=== PATIENT | female | born 1935 | race Caucasian/White ===

== ENCOUNTER → 2017-04-09 | Outpatient (REF) | payer OTHER ==
[2017-04-09 12:06] LABS: MEAN CORPUSCULAR HEMOGLOBIN 30.6 pg (27.0-33.0); MEAN CORPUSCULAR HGB CONC 32.6 g/dl (32.0-36.5); MEAN CORPUSCULAR VOLUME 93.7 fl (80.0-96.0); RED CELL DISTRIBUTION WIDTH 14.3 % (11.5-14.5); WHITE BLOOD COUNT 6.8 K/mm3 (4.0-10.0)
[2017-04-09 12:27] LABS: FOLATE > 24.0 NG/ML; VITAMIN B12 LEVEL 159 PG/ML
[2017-04-09 12:37] LABS: ALBUMIN 3.8 GM/DL (3.2-5.2); ALBUMIN/GLOBULIN RATIO 1.23 (1.00-1.93); ALKALINE PHOSPHATASE 56 U/L (45-117); ALT/SGPT 20 U/L (12-78); ANION GAP 7 MEQ/L (8-16); AST/SGOT 15 U/L (15-37); BILIRUBIN,TOTAL 0.8 MG/DL (0.2-1.0); BLOOD UREA NITROGEN 23 MG/DL (7-18); CALCIUM LEVEL 9.3 MG/DL (8.8-10.2); CARBON DIOXIDE LEVEL 31 MEQ/L (21-32); CHLORIDE LEVEL 105 MEQ/L (98-107); CHOLESTEROL LEVEL 162 MG/DL (<200); CREATININE FOR GFR 0.64 MG/DL (0.55-1.02); GLOMERULAR FILTRATION RATE > 60.0 (>32); GLUCOSE, FASTING 112 MG/DL (83-110); POTASSIUM SERUM 4.4 MEQ/L (3.5-5.1); SODIUM LEVEL 143 MEQ/L (136-145); TOTAL PROTEIN 6.9 GM/DL (6.4-8.2); TRIGLYCERIDES LEVEL 128 MG/DL (<150)
== END ==
LOC: M SFHCPLAZ 09:01
PROVIDERS: ATTEND Nurse Practitioner Family
DX: E53.8 Deficiency of other specified B group vitamins (principal); I10 Essential (primary) hypertension; E78.2 Mixed hyperlipidemia; E55.9 Vitamin D deficiency, unspecified

== ENCOUNTER → 2017-06-10 | Outpatient (REF) | payer OTHER ==
[2017-06-10 11:37] LABS: MEAN CORPUSCULAR HEMOGLOBIN 30.3 pg (27.0-33.0); MEAN CORPUSCULAR HGB CONC 33.4 g/dl (32.0-36.5); MEAN CORPUSCULAR VOLUME 90.8 fl (80.0-96.0)
[2017-06-10 11:53] LABS: VITAMIN B12 LEVEL 572 PG/ML
[2017-06-10 11:54] LABS: FOLATE > 24.0 NG/ML
[2017-06-15 14:10] LABS: ANTI-PARIETAL CELL ANTIBODY 39.8 Units (0.0-20.0)
== END ==
LOC: M SFHCPLAZ 08:38
PROVIDERS: ATTEND Nurse Practitioner Family
DX: E53.8 Deficiency of other specified B group vitamins (principal)

== ENCOUNTER → 2017-10-20 | Outpatient (REF) | payer OTHER ==
[2017-10-20 10:50] LABS: MEAN CORPUSCULAR HEMOGLOBIN 29.6 pg (27.0-33.0); MEAN CORPUSCULAR HGB CONC 32.6 g/dl (32.0-36.5); MEAN CORPUSCULAR VOLUME 90.8 fl (80.0-96.0); PLATELET COUNT, AUTOMATED 212 10^3/uL (150-450); RED CELL DISTRIBUTION WIDTH 14.4 % (11.5-14.5); WHITE BLOOD COUNT 5.7 10^3/uL (4.0-10.0)
[2017-10-20 11:24] LABS: ALBUMIN 3.6 GM/DL (3.2-5.2); ALBUMIN/GLOBULIN RATIO 1.09 (1.00-1.93); ALKALINE PHOSPHATASE 48 U/L (45-117); ALT/SGPT 23 U/L (12-78); ANION GAP 6 MEQ/L (8-16); AST/SGOT 16 U/L (7-37); BILIRUBIN,TOTAL 0.6 MG/DL (0.2-1.0); BLOOD UREA NITROGEN 28 MG/DL (7-18); CALCIUM LEVEL 9.4 MG/DL (8.8-10.2); CARBON DIOXIDE LEVEL 30 MEQ/L (21-32); CHLORIDE LEVEL 106 MEQ/L (98-107); CREATININE FOR GFR 0.55 MG/DL (0.55-1.02); FOLATE 21.2 NG/ML; GLOMERULAR FILTRATION RATE > 60.0 (>32); GLUCOSE, FASTING 95 MG/DL (83-110); POTASSIUM SERUM 4.3 MEQ/L (3.5-5.1); SODIUM LEVEL 142 MEQ/L (136-145); TOTAL PROTEIN 6.9 GM/DL (6.4-8.2); VITAMIN B12 LEVEL 615 PG/ML
== END ==
LOC: M SFHCPLAZ 08:52
PROVIDERS: ATTEND Nurse Practitioner Family
DX: E53.8 Deficiency of other specified B group vitamins (principal); I10 Essential (primary) hypertension; E55.9 Vitamin D deficiency, unspecified

== ENCOUNTER → 2017-10-30 | Outpatient (CLI) | payer OTHER ==
--- NOTE | 2017-10-30 08:55 | REPMRS ---
Patient History The patient states she had a clinical breast exam in 09/2017. 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 No known family history of cancer. Malignant lumpectomy of the left breast, 2005. Radiation therapy of the left breast, 2004. Took tamoxifen for 5 years. Digital Woman Screen Mammo: October 30, 2017 - Exam #: [id number] Bilateral CC and MLO view(s) were taken. Technologist: Nataliya Aguirre, Technologist Prior study comparison: October 27, 2016, digital woman screen mammo performed at [facility]. October 24, 2015, bilateral digital mammo screening bilat, performed at [facility]. October 23, 2014, bilateral digital mammo screening bilat, performed at [facility]. FINDINGS: There are scattered fibroglandular densities. There are stable post treatment changes in the left breast.There has been no change in the appearance of the mammogram from the prior studies. There is a mild amount of scattered fibroglandular density which is fairly symmetric. There is no interval development of dominant mass, architectural distortion, or clustered microcalcification suggestive of malignancy. ASSESSMENT: BI-RADS/ACR category 1 mammogram. Negative. Recommendation Routine screening mammogram in 1 year (for women over age 40). This mammogram was interpreted with the aid of an FDA-approved computer-aided dectection system. Electronically Signed By: Maurisio Sarah MD 10/30/17 [id number]
== END ==
LOC: M WHC 07:45
PROVIDERS: ATTEND Nurse Practitioner Family
DX: Z12.31 Encounter for screening mammogram for malignant neoplasm of breast (principal)

== ENCOUNTER → 2018-03-30 | Outpatient (REF) | payer OTHER ==
[2018-03-30 10:50] LABS: HEMATOCRIT 46.5 % (36.0-47.0); HEMOGLOBIN 15.2 g/dl (12.0-15.5); MEAN CORPUSCULAR HEMOGLOBIN 30.1 pg (27.0-33.0); MEAN CORPUSCULAR HGB CONC 32.7 g/dl (32.0-36.5); MEAN CORPUSCULAR VOLUME 92.1 fl (80.0-96.0); PLATELET COUNT, AUTOMATED 217 10^3/uL (150-450); RED BLOOD COUNT 5.05 10^6/uL (4.00-5.40); RED CELL DISTRIBUTION WIDTH 14.2 % (11.5-14.5); WHITE BLOOD COUNT 7.5 10^3/uL (4.0-10.0)
[2018-03-30 11:40] LABS: ALBUMIN 3.7 GM/DL (3.2-5.2); ALBUMIN/GLOBULIN RATIO 1.09 (1.00-1.93); ALKALINE PHOSPHATASE 48 U/L (45-117); ALT/SGPT 23 U/L (12-78); ANION GAP 4 MEQ/L (8-16); AST/SGOT 21 U/L (7-37); BILIRUBIN,TOTAL 0.7 MG/DL (0.2-1.0); BLOOD UREA NITROGEN 25 MG/DL (7-18); CALCIUM LEVEL 9.1 MG/DL (8.8-10.2); CARBON DIOXIDE LEVEL 30 MEQ/L (21-32); CHLORIDE LEVEL 110 MEQ/L (98-107); CHOLESTEROL LEVEL 143 MG/DL (<200); CHOLESTEROL RISK RATIO 2.014 (<5); CREATININE FOR GFR 0.55 MG/DL (0.55-1.30); GLOMERULAR FILTRATION RATE > 60.0 (>32); GLUCOSE, FASTING 94 MG/DL (70-100); HDL CHOLESTEROL 71 MG/DL (>40); LDL CHOLESTEROL 44.4 MG/DL (<100); NON-HDL-C 72 MG/DL; POTASSIUM SERUM 4.1 MEQ/L (3.5-5.1); SODIUM LEVEL 144 MEQ/L (136-145); TOTAL PROTEIN 7.1 GM/DL (6.4-8.2); TRIGLYCERIDES LEVEL 138 MG/DL (<150)
[2018-03-30 11:46] LABS: TOTAL 25(OH) VITAMIN D 42.9 NG/ML (30.0-100.0)
[2018-03-30 11:47] LABS: FOLATE 22.5 NG/ML; VITAMIN B12 LEVEL 1015 PG/ML
== END ==
LOC: M SFHCPLAZ 08:54
DX: E53.8 Deficiency of other specified B group vitamins (principal); I10 Essential (primary) hypertension; E78.2 Mixed hyperlipidemia; E55.9 Vitamin D deficiency, unspecified
CPT/HCPCS: 82746

== ENCOUNTER → 2018-04-06 | Outpatient (CLI) | payer OTHER | LOC: M SMT 15:19 | DX: K44.9 Diaphragmatic hernia without obstruction or gangrene (principal); R05 Cough | CPT/HCPCS: 71046; G0463 ==

== ENCOUNTER → 2018-08-30 | Outpatient (REF) | payer OTHER ==
[2018-08-30 12:54] LABS: ALBUMIN 3.7 GM/DL (3.2-5.2); ALBUMIN/GLOBULIN RATIO 1.16 (1.00-1.93); ALKALINE PHOSPHATASE 54 U/L (45-117); ALT/SGPT 24 U/L (12-78); ANION GAP 8 MEQ/L (8-16); AST/SGOT 21 U/L (7-37); BILIRUBIN,TOTAL 0.6 MG/DL (0.2-1.0); BLOOD UREA NITROGEN 21 MG/DL (7-18); CALCIUM LEVEL 9.6 MG/DL (8.8-10.2); CARBON DIOXIDE LEVEL 27 MEQ/L (21-32); CHLORIDE LEVEL 107 MEQ/L (98-107); CREATININE FOR GFR 0.61 MG/DL (0.55-1.30); GLOMERULAR FILTRATION RATE > 60.0 (>32); GLUCOSE, FASTING 102 MG/DL (70-100); POTASSIUM SERUM 4.5 MEQ/L (3.5-5.1); SODIUM LEVEL 142 MEQ/L (136-145); TOTAL PROTEIN 6.9 GM/DL (6.4-8.2)
[2018-08-30 13:28] LABS: TOTAL 25(OH) VITAMIN D 41.4 NG/ML (30.0-100.0)
[2018-08-30 13:29] LABS: FOLATE 16.8 NG/ML
== END ==
LOC: M SFHCPLAZ 08:55
DX: I10 Essential (primary) hypertension (principal); M81.0 Age-related osteoporosis without current pathological fracture; E53.8 Deficiency of other specified B group vitamins
CPT/HCPCS: 82746

== ENCOUNTER 2018-10-05 07:56 | Emergency (ER) | payer OTHER ==
[2018-10-05 08:46] LABS: BEDSIDE GLUCOSE 102 MG/DL (83-110)
[2018-10-05] MEDS: MECLIZINE 25 MG TABLET PO (08:48)
[2018-10-05 09:03] LABS: BASO # 0.1 10^3/uL (0.0-0.2); BASO % 1.1 % (0.0-1.0); EOS # 0.2 10^3/uL (0.0-0.50); EOS % 2.5 % (0.0-3.0); HEMATOCRIT 43.3 % (36.0-47.0); HEMOGLOBIN 14.5 g/dl (12.0-15.5); IMMATURE GRANULOCYTE % 0.6 % (0-3.0); LYMPH # 0.7 10^3/uL (1.5-4.5); LYMPH % 9.7 % (24.0-44.0); MEAN CORPUSCULAR HGB CONC 33.5 g/dl (32.0-36.5); MEAN CORPUSCULAR VOLUME 89.6 fl (80.0-96.0); MONO # 0.6 10^3/uL (0.0-0.8); MONO % 8.5 % (0.0-5.0); NEUTROPHILS # 5.6 10^3/uL (1.8-7.7); NEUTROPHILS % 77.6 % (36.0-66.0); PLATELET COUNT, AUTOMATED 191 10^3/uL (150-450); RED BLOOD COUNT 4.83 10^6/uL (4.00-5.40); RED CELL DISTRIBUTION WIDTH 14.6 % (11.5-14.5); WHITE BLOOD COUNT 7.2 10^3/uL (4.0-10.0)
[2018-10-05 09:42] LABS: ANION GAP 8 MEQ/L (8-16); BLOOD UREA NITROGEN 27 MG/DL (7-18); CALCIUM LEVEL 9.3 MG/DL (8.8-10.2); CARBON DIOXIDE LEVEL 27 MEQ/L (21-32); CHLORIDE LEVEL 106 MEQ/L (98-107); CPK CREATINE PHOSPHOKINASE 47 U/L (26-192); CREATININE FOR GFR 0.64 MG/DL (0.55-1.30); FREE T4 1.06 NG/DL (0.76-1.46); GLOMERULAR FILTRATION RATE > 60.0 (>32); GLUCOSE, FASTING 127 MG/DL (70-100); MAGNESIUM LEVEL 2.2 MG/DL (1.8-2.4); POTASSIUM SERUM 4.2 MEQ/L (3.5-5.1); SODIUM LEVEL 141 MEQ/L (136-145); TROPONIN I < 0.02 NG/ML (< 0.10)
[2018-10-05 09:55] LABS: INR 0.97
[2018-10-05 09:56] LABS: PARTIAL THROMBOPLASTIN TIME 26.8 SECONDS (25.4-37.6)
[2018-10-05] MEDS: hydroCHLOROthiazide 25 MG TAB PO (09:58)
[2018-10-05] MEDS: ATENOLOL 25 MG TAB PO (09:58)
[2018-10-05] MEDS: VALSARTAN 80 MG TAB (DIOVAN) PO (09:58)
== END 2018-10-05 13:37 | disposition home or self-care (01) ==
LOC: M ED 07:56
DX: R42 Dizziness and giddiness (principal); I11.9 Hypertensive heart disease without heart failure; I44.4 Left anterior fascicular block; I25.10 Atherosclerotic heart disease of native coronary artery without angina pectoris; E78.5 Hyperlipidemia, unspecified; K21.9 Gastro-esophageal reflux disease without esophagitis; K44.9 Diaphragmatic hernia without obstruction or gangrene; E55.9 Vitamin D deficiency, unspecified; J30.9 Allergic rhinitis, unspecified; R01.1 Cardiac murmur, unspecified; R60.0 Localized edema; Z85.3 Personal history of malignant neoplasm of breast; Z95.5 Presence of coronary angioplasty implant and graft; I67.82 Cerebral ischemia; Z88.8 Allergy status to other drugs, medicaments and biological substances; Z79.899 Other long term (current) drug therapy; Z79.82 Long term (current) use of aspirin
CPT/HCPCS: 71046

== ENCOUNTER → 2019-04-11 | Outpatient (REF) | payer MEDICARE ==
[~2019-04-11] MED LIST: ACET500T15 PO; ASPI-222 PO; ATEN25TA PO; AZEL0.055 NARES; CALC1TAB63 PO; CRES10TA PO; DIOV160T6 PO; GABA-843 PO; HYDR25TAB PO; MECL-86 PO; MULTCAP PO; NITR4TASL SL; OMEP10CASR PO; SALI0.652 NARES; TESS100C PO; VITA10002 PO; VITA1TAB9 PO
[2019-04-11 12:16] LABS: ALBUMIN 3.7 GM/DL (3.2-5.2); ALT/SGPT 26 U/L (12-78); BILIRUBIN,TOTAL 0.9 MG/DL (0.2-1.0); BLOOD UREA NITROGEN 26 MG/DL (7-18); CALCIUM LEVEL 9.4 MG/DL (8.8-10.2); CARBON DIOXIDE LEVEL 30 MEQ/L (21-32); CHLORIDE LEVEL 106 MEQ/L (98-107); CHOLESTEROL LEVEL 148 MG/DL (<200); CHOLESTEROL RISK RATIO 2.027 (<5); CREATININE FOR GFR 0.64 MG/DL (0.55-1.30); GLOMERULAR FILTRATION RATE > 60.0 (>32); GLUCOSE, FASTING 105 MG/DL (70-100); HDL CHOLESTEROL 73 MG/DL (>40); LDL CHOLESTEROL 35 MG/DL (<100); NON-HDL-C 75 MG/DL; POTASSIUM SERUM 4.3 MEQ/L (3.5-5.1); SODIUM LEVEL 143 MEQ/L (136-145); TOTAL PROTEIN 7.3 GM/DL (6.4-8.2); TRIGLYCERIDES LEVEL 200 MG/DL (<150)
== END ==
LOC: M SFHCPLAZ 09:01
PROVIDERS: ATTEND Nurse Practitioner Family
DX: I10 Essential (primary) hypertension (principal); E78.2 Mixed hyperlipidemia; E55.9 Vitamin D deficiency, unspecified; Z79.899 Other long term (current) drug therapy

== ENCOUNTER → 2019-09-08 | Outpatient (REF) | payer MEDICARE ==
[~2019-09-08] MED LIST changes: -ASPI-222 PO; +ASPI-527 PO; +CYAN100049 PO; -VITA10002 PO
[2019-09-08 12:02] LABS: ALBUMIN 3.7 GM/DL (3.2-5.2); ALT/SGPT 26 U/L (12-78); BILIRUBIN,TOTAL 0.8 MG/DL (0.2-1.0); BLOOD UREA NITROGEN 23 MG/DL (7-18); CALCIUM LEVEL 9.8 MG/DL (8.8-10.2); CARBON DIOXIDE LEVEL 32 MEQ/L (21-32); CHLORIDE LEVEL 106 MEQ/L (98-107); CHOLESTEROL LEVEL 164 MG/DL (<200); CHOLESTEROL RISK RATIO 2.309 (<5); CREATININE FOR GFR 0.78 MG/DL (0.55-1.30); GLOMERULAR FILTRATION RATE > 60.0 (>32); GLUCOSE, FASTING 99 MG/DL (70-100); HDL CHOLESTEROL 71 MG/DL (>40); LDL CHOLESTEROL 58 MG/DL (<100); NON-HDL-C 93 MG/DL; POTASSIUM SERUM 4.6 MEQ/L (3.5-5.1); SODIUM LEVEL 141 MEQ/L (136-145); TRIGLYCERIDES LEVEL 174 MG/DL (<150)
[2019-09-08 12:06] LABS: TOTAL 25(OH) VITAMIN D 50.9 NG/ML (30.0-100.0)
[2019-09-08 12:07] LABS: VITAMIN B12 LEVEL > 2000 PG/ML
== END ==
LOC: M SFHCPLAZ 08:54
PROVIDERS: ATTEND Nurse Practitioner Family
DX: E78.2 Mixed hyperlipidemia (principal); E55.9 Vitamin D deficiency, unspecified; E53.8 Deficiency of other specified B group vitamins; Z79.899 Other long term (current) drug therapy; Z79.82 Long term (current) use of aspirin

== ENCOUNTER → 2020-05-21 | Outpatient (CLI) | payer MEDICARE ==
[2020-05-21 13:01] LABS: BLOOD UREA NITROGEN 22 MG/DL (7-18); CALCIUM LEVEL 9.8 MG/DL (8.8-10.2); CARBON DIOXIDE LEVEL 28 MEQ/L (21-32); CHLORIDE LEVEL 107 MEQ/L (98-107); CREATININE FOR GFR 0.66 MG/DL (0.55-1.30); GLOMERULAR FILTRATION RATE > 60.0 (>32); GLUCOSE, FASTING 107 MG/DL (70-100); POTASSIUM SERUM 5.2 MEQ/L (3.5-5.1); SODIUM LEVEL 139 MEQ/L (136-145); URIC ACID 3.9 MG/DL (2.6-6.0)
== END ==
LOC: M PLALAB 09:28
PROVIDERS: ATTEND Nurse Practitioner Family
DX: I10 Essential (primary) hypertension (principal); M15.9 Polyosteoarthritis, unspecified

== ENCOUNTER → 2020-07-24 | Outpatient (CLI) | payer MEDICARE ==
[2020-07-24 19:18] LABS: HEMATOCRIT 46.3 % (36.0-47.0); HEMOGLOBIN 15.2 g/dl (12.0-15.5); MEAN CORPUSCULAR HEMOGLOBIN 30.8 pg (27.0-33.0); MEAN CORPUSCULAR HGB CONC 32.8 g/dl (32.0-36.5); MEAN CORPUSCULAR VOLUME 93.9 fl (80.0-96.0); PLATELET COUNT, AUTOMATED 201 10^3/uL (150-450); RED BLOOD COUNT 4.93 10^6/uL (4.00-5.40); WHITE BLOOD COUNT 6.9 10^3/uL (4.0-10.0)
[2020-07-24 19:51] LABS: BLOOD UREA NITROGEN 29 MG/DL (7-18); CARBON DIOXIDE LEVEL 30 MEQ/L (21-32); CHLORIDE LEVEL 106 MEQ/L (98-107); CREATININE FOR GFR 0.73 MG/DL (0.55-1.30); GLOMERULAR FILTRATION RATE > 60.0 (>32); GLUCOSE, FASTING 106 MG/DL (70-100); MAGNESIUM LEVEL 2.3 MG/DL (1.8-2.4); NT-PRO BNP 444 PG/ML (<450); POTASSIUM SERUM 5.5 MEQ/L (3.5-5.1); SODIUM LEVEL 139 MEQ/L (136-145)
== END ==
LOC: M PLALAB 14:44
PROVIDERS: ATTEND Physician Assistant
DX: I50.9 Heart failure, unspecified (principal)

== ENCOUNTER → 2020-08-21 | Outpatient (CLI) | payer MEDICARE ==
[2020-08-21 12:15] LABS: BLOOD UREA NITROGEN 32 MG/DL (7-18); CARBON DIOXIDE LEVEL 31 MEQ/L (21-32); CHLORIDE LEVEL 105 MEQ/L (98-107); GLOMERULAR FILTRATION RATE > 60.0 (>32); GLUCOSE, FASTING 105 MG/DL (70-100); MAGNESIUM LEVEL 2.3 MG/DL (1.8-2.4); NT-PRO BNP 213 PG/ML (<450); SODIUM LEVEL 139 MEQ/L (136-145)
== END ==
LOC: M PLALAB 08:23
PROVIDERS: ATTEND Physician Assistant
DX: I50.9 Heart failure, unspecified (principal)

== ENCOUNTER → 2020-09-03 | Outpatient (CLI) | payer MEDICARE ==
[2020-09-03 12:41] LABS: BLOOD UREA NITROGEN 37 MG/DL (7-18); CALCIUM LEVEL 9.7 MG/DL (8.8-10.2); CARBON DIOXIDE LEVEL 31 MEQ/L (21-32); CHLORIDE LEVEL 106 MEQ/L (98-107); CREATININE FOR GFR 0.77 MG/DL (0.55-1.30); GLOMERULAR FILTRATION RATE > 60.0 (>32); GLUCOSE, FASTING 102 MG/DL (70-100); MAGNESIUM LEVEL 2.2 MG/DL (1.8-2.4); NT-PRO BNP 168 PG/ML (<450); POTASSIUM SERUM 4.9 MEQ/L (3.5-5.1); SODIUM LEVEL 141 MEQ/L (136-145)
== END ==
LOC: M PLALAB 08:11
PROVIDERS: ATTEND Physician Assistant
DX: I50.9 Heart failure, unspecified (principal)

== ENCOUNTER → 2020-09-03 | Outpatient (REF) | payer MEDICARE ==
[2020-09-03 12:39] LABS: ALBUMIN 3.6 GM/DL (3.2-5.2); ALT/SGPT 22 U/L (12-78); BILIRUBIN,TOTAL 0.7 MG/DL (0.2-1.0); BLOOD UREA NITROGEN 36 MG/DL (7-18); CALCIUM LEVEL 9.9 MG/DL (8.8-10.2); CARBON DIOXIDE LEVEL 31 MEQ/L (21-32); CHLORIDE LEVEL 105 MEQ/L (98-107); CHOLESTEROL LEVEL 153 MG/DL (<200); CHOLESTEROL RISK RATIO 2.283 (<5); CREATININE FOR GFR 0.75 MG/DL (0.55-1.30); GLOMERULAR FILTRATION RATE > 60.0 (>32); GLUCOSE, FASTING 100 MG/DL (70-100); HDL CHOLESTEROL 67 MG/DL (>40); LDL CHOLESTEROL 52 MG/DL (<100); NON-HDL-C 86 MG/DL; POTASSIUM SERUM 4.9 MEQ/L (3.5-5.1); SODIUM LEVEL 140 MEQ/L (136-145); TOTAL PROTEIN 6.8 GM/DL (6.4-8.2); TRIGLYCERIDES LEVEL 169 MG/DL (<150)
[2020-09-03 12:44] LABS: TOTAL 25(OH) VITAMIN D 63.7 NG/ML (30.0-100.0)
== END ==
LOC: M PLALAB 08:11
PROVIDERS: ATTEND Nurse Practitioner Family
DX: E78.2 Mixed hyperlipidemia (principal); I11.0 Hypertensive heart disease with heart failure; E55.9 Vitamin D deficiency, unspecified; I50.9 Heart failure, unspecified

== ENCOUNTER → 2020-09-17 | Outpatient (CLI) | payer MEDICARE ==
[2020-09-17 12:08] LABS: BLOOD UREA NITROGEN 25 MG/DL (7-18); CALCIUM LEVEL 9.7 MG/DL (8.8-10.2); CARBON DIOXIDE LEVEL 32 MEQ/L (21-32); CHLORIDE LEVEL 106 MEQ/L (98-107); GLOMERULAR FILTRATION RATE > 60.0 (>32); GLUCOSE, FASTING 104 MG/DL (70-100); MAGNESIUM LEVEL 2.2 MG/DL (1.8-2.4); NT-PRO BNP 224 PG/ML (<450); POTASSIUM SERUM 4.8 MEQ/L (3.5-5.1); SODIUM LEVEL 143 MEQ/L (136-145)
== END ==
LOC: M PLALAB 08:04
PROVIDERS: ATTEND Physician Assistant
DX: I50.9 Heart failure, unspecified (principal)

== ENCOUNTER → 2020-12-17 | Outpatient (CLI) | payer MEDICARE ==
[~2020-12-17] MED LIST changes: +GABA-282 PO; -GABA-843 PO; +HYDR-3490 PO; -HYDR25TAB PO
[2020-12-17 14:15] LABS: BLOOD UREA NITROGEN 37 MG/DL (7-18); CALCIUM LEVEL 9.7 MG/DL (8.8-10.2); CARBON DIOXIDE LEVEL 31 MEQ/L (21-32); CHLORIDE LEVEL 106 MEQ/L (98-107); CREATININE FOR GFR 0.86 MG/DL (0.55-1.30); GLOMERULAR FILTRATION RATE > 60.0 (>32); GLUCOSE, FASTING 101 MG/DL (70-100); MAGNESIUM LEVEL 2.5 MG/DL (1.8-2.4); POTASSIUM SERUM 4.6 MEQ/L (3.5-5.1); SODIUM LEVEL 141 MEQ/L (136-145)
== END ==
LOC: M PLALAB 10:35
PROVIDERS: ATTEND Physician Assistant
DX: I50.32 Chronic diastolic (congestive) heart failure (principal); E83.42 Hypomagnesemia

== ENCOUNTER → 2021-03-22 | Outpatient (REF) | payer MEDICARE ==
[2021-03-22 10:39] LABS: BLOOD UREA NITROGEN 23 MG/DL (7-18); CALCIUM LEVEL 9.7 MG/DL (8.8-10.2); CARBON DIOXIDE LEVEL 29 MEQ/L (21-32); CHLORIDE LEVEL 105 MEQ/L (98-107); CREATININE FOR GFR 0.61 MG/DL (0.55-1.30); GLOMERULAR FILTRATION RATE > 60.0 (>32); GLUCOSE, FASTING 110 MG/DL (70-100); MAGNESIUM LEVEL 2.1 MG/DL (1.8-2.4); POTASSIUM SERUM 4.3 MEQ/L (3.5-5.1); SODIUM LEVEL 141 MEQ/L (136-145)
== END ==
LOC: M PLALAB 09:50
PROVIDERS: ATTEND Physician Assistant
DX: I50.32 Chronic diastolic (congestive) heart failure (principal); E83.42 Hypomagnesemia

== ENCOUNTER → 2021-06-19 | Outpatient (CLI) | payer MEDICARE ==
[2021-06-19 14:33] LABS: BLOOD UREA NITROGEN 24 MG/DL (7-18); CARBON DIOXIDE LEVEL 32 MEQ/L (21-32); CHLORIDE LEVEL 108 MEQ/L (98-107); GLOMERULAR FILTRATION RATE > 60.0 (>32); GLUCOSE, FASTING 106 MG/DL (70-100); MAGNESIUM LEVEL 2.5 MG/DL (1.8-2.4); NT-PRO BNP 202 PG/ML (<450); POTASSIUM SERUM 5.1 MEQ/L (3.5-5.1); SODIUM LEVEL 143 MEQ/L (136-145)
== END ==
LOC: M PLALAB 09:53
PROVIDERS: ATTEND Physician Assistant
DX: I50.9 Heart failure, unspecified (principal)

== ENCOUNTER → 2021-10-08 | Outpatient (CLI) | payer MEDICARE ==
[2021-10-08 14:19] LABS: BLOOD UREA NITROGEN 33 MG/DL (7-18); CALCIUM LEVEL 10.4 MG/DL (8.8-10.2); CARBON DIOXIDE LEVEL 33 MEQ/L (21-32); CHLORIDE LEVEL 106 MEQ/L (98-107); GLOMERULAR FILTRATION RATE > 60.0 (>32); GLUCOSE, FASTING 93 MG/DL (70-100); MAGNESIUM LEVEL 2.7 MG/DL (1.8-2.4); POTASSIUM SERUM 5.2 MEQ/L (3.5-5.1); SODIUM LEVEL 142 MEQ/L (136-145)
== END ==
LOC: M PLALAB 09:19
PROVIDERS: ATTEND Physician Assistant
DX: I50.32 Chronic diastolic (congestive) heart failure (principal); E83.42 Hypomagnesemia

== ENCOUNTER → 2022-01-21 | Outpatient (CLI) | payer MEDICARE ==
[2022-01-21 14:16] LABS: BLOOD UREA NITROGEN 33 MG/DL (7-18); CALCIUM LEVEL 9.7 MG/DL (8.8-10.2); CARBON DIOXIDE LEVEL 22 MEQ/L (21-32); CHLORIDE LEVEL 109 MEQ/L (98-107); CREATININE FOR GFR 0.69 MG/DL (0.55-1.30); GLOMERULAR FILTRATION RATE > 60.0 (>32); GLUCOSE, FASTING 91 MG/DL (70-100); POTASSIUM SERUM 5.5 MEQ/L (3.5-5.1); SODIUM LEVEL 143 MEQ/L (136-145)
== END ==
LOC: M PLALAB 09:18
PROVIDERS: ATTEND Physician Assistant
DX: I50.32 Chronic diastolic (congestive) heart failure (principal)

== ENCOUNTER → 2022-02-17 | Outpatient (CLI) | payer MEDICARE ==
[2022-02-17 14:11] LABS: BLOOD UREA NITROGEN 28 MG/DL (7-18); CALCIUM LEVEL 9.6 MG/DL (8.8-10.2); CARBON DIOXIDE LEVEL 30 MEQ/L (21-32); CHLORIDE LEVEL 107 MEQ/L (98-107); GLOMERULAR FILTRATION RATE > 60.0 (>32); GLUCOSE, FASTING 117 MG/DL (70-100); POTASSIUM SERUM 4.5 MEQ/L (3.5-5.1); SODIUM LEVEL 141 MEQ/L (136-145)
== END ==
LOC: M PLALAB 10:14
PROVIDERS: ATTEND Physician Assistant
DX: I50.32 Chronic diastolic (congestive) heart failure (principal)

== ENCOUNTER → 2022-05-09 | Outpatient (CLI) | payer MEDICARE ==
[2022-05-09 16:09] LABS: BLOOD UREA NITROGEN 24 MG/DL (7-18); CALCIUM LEVEL 9.1 MG/DL (8.8-10.2); CARBON DIOXIDE LEVEL 28 MEQ/L (21-32); CHLORIDE LEVEL 108 MEQ/L (98-107); CREATININE FOR GFR 0.77 MG/DL (0.55-1.30); GLOMERULAR FILTRATION RATE > 60.0 (>32); GLUCOSE, FASTING 114 MG/DL (70-100); MAGNESIUM LEVEL 2.4 MG/DL (1.8-2.4); POTASSIUM SERUM 4.7 MEQ/L (3.5-5.1); SODIUM LEVEL 141 MEQ/L (136-145)
== END ==
LOC: M PLALAB 13:35
PROVIDERS: ATTEND Physician Assistant
DX: I50.32 Chronic diastolic (congestive) heart failure (principal); E83.42 Hypomagnesemia

== ENCOUNTER → 2022-09-09 | Outpatient (CLI) | payer MEDICARE ==
[2022-09-09 15:12] LABS: BLOOD UREA NITROGEN 30 MG/DL (7-18); CALCIUM LEVEL 10.3 MG/DL (8.8-10.2); CARBON DIOXIDE LEVEL 31 MEQ/L (21-32); CHLORIDE LEVEL 106 MEQ/L (98-107); CREATININE FOR GFR 0.85 MG/DL (0.55-1.30); GLOMERULAR FILTRATION RATE > 60.0 (>32); GLUCOSE, FASTING 105 MG/DL (70-100); MAGNESIUM LEVEL 2.3 MG/DL (1.8-2.4); POTASSIUM SERUM 4.2 MEQ/L (3.5-5.1); SODIUM LEVEL 142 MEQ/L (136-145)
== END ==
LOC: M PLALAB 10:18
PROVIDERS: ATTEND Physician Assistant
DX: I50.32 Chronic diastolic (congestive) heart failure (principal); E83.42 Hypomagnesemia

== ENCOUNTER → 2023-03-02 | Outpatient (CLI) | payer MEDICARE ==
[2023-03-02 19:12] LABS: BLOOD UREA NITROGEN 31 MG/DL (9-23); CARBON DIOXIDE LEVEL 31 MMOL/L (20-31); CHLORIDE LEVEL 105 MMOL/L (98-107); CREATININE FOR GFR 0.62 MG/DL (0.55-1.30); GLOMERULAR FILTRATION RATE > 60.0 (>32); GLUCOSE, FASTING 100 MG/DL (74-106); POTASSIUM SERUM 4.3 MMOL/L (3.5-5.1); SODIUM LEVEL 141 MMOL/L (136-145)
== END ==
LOC: M PLALAB 09:42
PROVIDERS: ATTEND Physician Assistant
DX: I50.32 Chronic diastolic (congestive) heart failure (principal)

== ENCOUNTER 2024-02-22 08:41 | Emergency (ER) | payer MEDICARE, OTHER ==
[~2024-02-22] VITALS: Ht 170.2 cm; Wt 90.0 kg
[2024-02-22 09:31] LABS: BASO # 0.1 10^3/uL (0.0-0.2); BASO % 1.2 % (0.0-1.0); EOS # 0.1 10^3/uL (0.0-0.5); EOS % 2.6 % (0.0-3.0); HEMATOCRIT 43.9 % (36.0-47.0); HEMOGLOBIN 14.6 g/dl (12.0-15.5); LYMPH # 0.8 10^3/uL (1.5-5.0); MEAN CORPUSCULAR HEMOGLOBIN 30.3 pg (27.0-33.0); MEAN CORPUSCULAR HGB CONC 33.3 g/dl (32.0-36.5); MEAN CORPUSCULAR VOLUME 91.1 fl (80.0-96.0); MONO # 0.5 10^3/uL (0.0-0.8); MONO % 9.7 % (2.0-8.0); NEUTROPHILS # 3.6 10^3/uL (1.5-8.5); NEUTROPHILS % 71.3 % (36.0-66.0); PLATELET COUNT, AUTOMATED 237 10^3/uL (150-450); RED BLOOD COUNT 4.82 10^6/uL (4.00-5.40); WHITE BLOOD COUNT 5.1 10^3/uL (4.0-10.0)
[2024-02-22 09:57] LABS: ALBUMIN 3.7 G/DL (3.2-5.2); BILIRUBIN,DIRECT 0.2 MG/DL (<0.4); BILIRUBIN,TOTAL 0.8 MG/DL (0.3-1.2); TOTAL PROTEIN 6.6 G/DL (5.7-8.2)
[2024-02-22 10:00] LABS: THYROID STIMULATING HORMONE 2.094 uIU/ML (0.55-4.78)
[2024-02-22 10:10] LABS: RSV AMPLIFICATION NEGATIVE (NEGATIVE)
[2024-02-22 13:31] LABS: CK-MB VALUE MASS < 1.0 NG/ML (<3.6)
[2024-02-22 13:36] LABS: CPK CREATINE PHOSPHOKINASE 32 U/L (34-145); MB/CK RELATIVE INDEX 3.12 (< OR =4)
[2024-02-22 18:00] VITALS: TEMP 98.1; O2SAT 95
[2024-02-22] MEDS: NS 1,000 ML IV SCH (18:02)
[2024-02-22 18:42] VITALS: BP 181/91
== END 2024-02-22 18:50 | disposition short-term general hospital (02) ==
LOC: EDBD 08:41 → M ED 10:07
DX: M48.061 Spinal stenosis, lumbar region without neurogenic claudication (principal); G83.4 Cauda equina syndrome; M47.816 Spondylosis without myelopathy or radiculopathy, lumbar region; M85.88 Other specified disorders of bone density and structure, other site; K44.9 Diaphragmatic hernia without obstruction or gangrene; Q25.46 Tortuous aortic arch; I25.10 Atherosclerotic heart disease of native coronary artery without angina pectoris; I50.9 Heart failure, unspecified; Z79.82 Long term (current) use of aspirin; Z79.899 Other long term (current) drug therapy; Z88.8 Allergy status to other drugs, medicaments and biological substances